=== PATIENT | female | born 1930 | race Caucasian/White ===

== ENCOUNTER 2017-05-20 19:49 | Emergency (ER) | payer OTHER ==
[2017-05-20 20:07] VITALS: BP 134/73; PULSE 73; TEMP 98.6; BMI 28.9
--- NOTE | 2017-05-20 20:47 | PDOC ---
History of Present Illness - General History Source: Patient - History of Present Illness Initial Comments: 05/20/17 21:13 The patient is a 87 year old female, with a significant past medical history of hypothyroidism and hypertension, who presents to the emergency department accompanied by daughter with bilateral foot swelling for approximately 6 days. As per daughter, she first noted mild swelling in the feet bilaterally, with associated erythema last . Daughter reports patients PCP evaluated the patient and prescribed her Amoxicillin and an antibiotic ointment 3 days ago. Daughter reports worsening edema in her feet since the start of her treatment as well as ulcerations to the toes bilaterally. Patient reports associated pain to the feet bilaterally, but denies any fever, chills, cough, headache, or dizziness. Daughter states patient had similar symptoms approximately 1 year ago , which resolved with antibiotics. Daughter reports patient usually spends the winter in [place] with family due to the cold. Patient typically ambulates with a walker at baseline, and has no history of recent trauma to the legs, diabetes, cardiac disease, or chronic leg swelling. Patient denies any chest pain, shortness of breath, diaphoresis, or palpitations. She denies any abdominal pain , nausea, vomiting, diarrhea, constipation, or changes in urination. She denies any recent travel or sick contacts. Allergies: NKDA Past Surgical History: Back surgery Social History: Non smoker. No ETOH or recreational drug use. <Kelly Eduardo - Last Filed: 05/20/17 21:13> <Anais Geronimo - Last Filed: 05/21/17 00:00> - General Chief Complaint: Wound Stated Complaint: BOTH FEET RED, ULCERS Time Seen by Provider: 05/20/17 19:52 Past History <Kelly Eduardo - Last Filed: 05/20/17 21:13> - Past Medical History COPD: No HTN: Yes Thyroid Disease: Yes - Suicide/Smoking/Psychosocial Hx Smoking History: Never smoked Have you smoked in the past 12 months: No Information on smoking cessation initiated: No Hx Alcohol Use: No Drug/Substance Use Hx: No Substance Use Type: None <Anais Geronimo - Last Filed: 05/21/17 00:00> - Past Medical History Allergies/Adverse Reactions: Allergies Allergy/AdvReac Type Severity Reaction Status Date / Time No Known Allergies Allergy Verified 05/20/17 19:52 Home Medications: Ambulatory Orders Amlodipine Besylate 5 mg PO HS 05/20/17 Amoxicillin - [Amoxicillin 500mg Capsule -] 500 mg PO TID 05/20/17 Hydrochlorothiazide [Hctz -] 25 mg PO HS 05/20/17 Levothyroxine [Synthroid -] 25 mcg PO DAILY 05/20/17 Lisinopril [Prinivil] 20 mg PO HS 05/20/17 Mupirocin Cream [Bactroban 2% Cream -] 1 applic TP BID 05/20/17 Review of Systems - Review of Systems Able to Perform ROS?: Yes Comments:: 05/20/17 21:13 CONSTITUTIONAL: Absent: fever, no chills, no fatigue EYES: Absent: visual changes ENT: Absent: ear pain, no sore throat CARDIOVASCULAR: Absent: chest pain, no palpitations RESPIRATORY: Absent: cough, no SOB GI: Absent: abdominal pain, no nausea, no vomiting, no constipation, no diarrhea GENITOURINARY: Absent: dysuria, no frequency, no hematuria MUSKULOSKELETAL: Absent: back pain, no arthralgia, no myalgia SKIN: Present: bilateral foot swelling/pain and ulcerations at the toes bilaterally Absent: rash NEURO: Absent: headache <Eduardo,Giomilsy - Last Filed: 05/20/17 21:13> *Physical Exam - Vital Signs Last Vital Signs Temp Pulse Resp BP Pulse Ox 98.6 F 73 20 134/73 100 05/20/17 19:49 05/20/17 19:49 05/20/17 19:49 05/20/17 19:49 05/20/17 19:49 - Physical Exam Comments: 05/20/17 21:14 GENERAL: The patient is awake, alert, and fully oriented, in no acute distress. HEAD: Normal with no signs of trauma. EYES: Pupils equal, round and reactive to light, extraocular movements intact, sclera anicteric, conjunctiva clear with no pallor. ENT: Ears normal, nares patent, oropharynx clear without exudates. Moist mucous membranes. NECK: Normal range of motion, supple without lymphadenopathy, JVD, or masses. LUNGS: Breath sounds equal, clear to auscultation bilaterally. No wheeze/ crackles. HEART: 2 out of 6 systolic murmur of the right and left intercostal space radiating to the carotids. Regular rate ABDOMEN: Soft/nontender/nondistended. BS wnl. No guarding or rebound. No palpable masses. No hepatosplenomegaly. EXTREMITIES: 2+ pitting edema to the ankle on the right, 1+ pitting edema to the ankle on the left, with erythema of toes and dorsum of the feet, skin was slightly warm to touch. Normal range of motion. No clubbing or cyanosis. No cords. NEUROLOGICAL: Cranial nerves II through XII grossly intact. Normal speech. PSYCH: Normal mood, normal affect. SKIN: 2+ pitting edema to the ankle on the right, 1+ pitting edema to the ankle on the left, with erythema of toes and dorsum of the feet, skin was slightly warm to touch. Shallow erosions at the base of the 2nd, 3rd, and 4th toes bilaterally. Scant amount of purulent drainage at the right 2nd toe lesion which was cultured. No Other rashes or lesions noted. <Kelly Eduardo - Last Filed: 05/20/17 21:13> - Vital Signs Last Vital Signs Temp Pulse Resp BP Pulse Ox 98.6 F 73 20 134/73 100 05/20/17 19:49 05/20/17 19:49 05/20/17 19:49 05/20/17 19:49 05/20/17 19:49 <Anais Geronimo - Last Filed: 05/21/17 00:00> ED Treatment Course - LABORATORY CBC & Chemistry Diagram: 05/20/17 21:48 05/20/17 21:48 <Anais Geronimo - Last Filed: 05/21/17 00:00> Medical Decision Making - Medical Decision Making Documentation has been prepared under my direction and personally reviewed by me in its entirety. I attest that this documented accurately reflects all work, treatment, procedures and medical decision making performed by me. As noted above, this 87-year-old woman (non-Beninese speaking; accompanied by her daughter who is her golf sales associate) presents with 5 day history of progressive bilateral foot cellulitis. She has been on amoxicillin, prescribed by her PMD ( third day) with progression of edema/erythema. One previous history of milder cellulitis of the feet; daughter states that the family believes that cold weather conditions resulted in the breakdown of skin and subsequent cellulitis. Exam as noted. Patient is afebrile and appears well. Laboratory evaluation reveals no elevation of white blood cell count (7200) with a normal lactic acid. Remainder of the laboratory evaluation is essentially normal. Daughter states that she will need to stay with her mother if she is admitted for IV antibiotics since she does not understand Beninese and is liable to be disoriented in the hospital. Case discussed with Dr.Roya Valenzuela, Infectious Disease staff. Since there is no evidence of systemic sepsis and patient would likely be disoriented as an inpatient, Dalvance 1000 mg IV approved for treatment now. 05/20/17 23:57 Patient tolerated administration of Delavance without adverse effects. She will be discharged with follow-up with her doctor in one week. If signs of worsening cellulitis occur prior to that, she should return to the emergency room. Amoxicillin by mouth should be discontinued but Bactroban ointment can be applied to the skin erosions as previously instructed. <Anais Geronimo - Last Filed: 05/21/17 00:00> *DC/Admit/Observation/Transfer - Attestations Scribe Attestion: 05/20/17 21:15 Documentation prepared by Kelly Eduardo, acting as certified medical aide for Anais Geronimo MD. <Kelly Eduardo - Last Filed: 05/20/17 21:13> <Anais Geronimo - Last Filed: 05/21/17 00:00> Diagnosis at time of Disposition: Cellulitis of both feet - Discharge Dispostion Disposition: HOME Condition at time of disposition: Good - Patient Instructions Printed Discharge Instructions: Cellulitis, Dalbavancin Injection Additional Instructions: Elevate feet as much as possible Continue Bactroban ointment as prescribed ; stop amoxicillin followup with general physician within 1 week Return to ER if redness/swelling worsens or fever develops
[2017-05-20 22:07] LABS: URINE APPEARANCE Clear; URINE BILIRUBIN Negative (NEGATIVE); URINE BLOOD Negative (NEGATIVE); URINE GLUCOSE (UA) Negative (NEGATIVE); URINE KETONE Negative (NEGATIVE); URINE NITRITE Negative (NEGATIVE); URINE PROTEIN Negative (NEGATIVE); URINE UROBILINOGEN 0.2 (0.2-1.0)
[2017-05-20 22:12] LABS: URINE COLOR YELLOW; URINE LEUK ESTERASE 1+ (NEGATIVE)
[2017-05-20 22:12] LABS: BASOPHIL 1.3 % (0-2.0); EOSINOPHIL 14.7 % (0-4.5); MCHC 34.5 g/dl (32.0-36.0); MEAN CELL VOLUME 86.8 fl (80-96); MEAN PLT VOLUME 9.4 fl (7.5-11.1); NEUTROPHILS 59.2 % (42.8-82.8); PLATELET COUNT 316 K/MM3 (134-434); RDW 12.4 % (11.6-15.6); WHITE BLOOD COUNT 7.2 K/mm3 (4.0-10.8)
[2017-05-20 22:15] LABS: INR 1.04 (0.82-1.09); PROTHROMBIN TIME (PATIENT) 11.6 SEC (10.2-13.0)
[2017-05-20 22:19] LABS: ALBUMIN 3.9 g/dl (3.5-5.0); ALK PHOS 101 U/L (32-92); ANION GAP 9 (8-16); BILIRUBIN,TOTAL 0.6 mg/dl (0.2-1.0); CALCIUM 9.5 mg/dl (8.4-10.2); CO2 25 mmol/L (22-28); CREATININE 1.2 mg/dl (0.6-1.3); GLUCOSE,RANDOM 120 mg/dl (74-106); SGOT/AST 35 U/L (10-42); SGPT/ALT 12 U/L (10-40); TOT PROT 8.2 g/dl (6.4-8.3)
[2017-05-20 22:42] LABS: URINE BACTERIA FEW /hpf (NEGATIVE); URINE RBC 0-2 /hpf (0-3)
[2017-05-20] MEDS ORDERED: DALBAVANCIN HCL 1,500 MG in DEXTROSE 5%-WATER - 500 ML IVPB ONE (23:00)
[2017-05-20] MEDS ORDERED: DALBAVANCIN HCL 500 MG VIAL (RESTRICTED TO ID ONLY) IVPB ONE (23:06)
== END 2017-05-20 23:56 | disposition home or self-care (01) ==
LOC: FER 19:49
DX: L03.116 Cellulitis of left lower limb (principal); L03.115 Cellulitis of right lower limb; E03.9 Hypothyroidism, unspecified; I10 Essential (primary) hypertension
CPT/HCPCS: 36415; 80053; 81003; 81015; 83605; 85025; 85610; 87040; 87070; 87086; 87205; 99282-25; J0875

== ENCOUNTER 2017-06-04 05:22 | Observation (INO) | payer OTHER ==
[2017-06-04 05:33] VITALS: BMI 36.1
--- NOTE | 2017-06-04 05:46 | PDOC ---
History of Present Illness - General Chief Complaint: Chest Pain Stated Complaint: chestpain Time Seen by Provider: 06/04/17 05:46 History Source: Patient Exam Limitations: Language Barrier - History of Present Illness Initial Comments: 06/04/17 05:51 This is an 87-year-old female who comes in with her daughter for evaluation of chest pain. Patient had several hours of chest pain last night and her daughter gave HER-2 aspirin and the chest pain resolved patient went to sleep and slept all night. Patient got up approximately 4 AM to go to the bathroom and the chest pain was turned. Patient has had constant chest pain since about 4 AM. Patient denies any associated nausea, diaphoresis or shortness of breath. Patient said the pain does radiate to the back and left shoulder but denies any radiation down the left arm. Patient has a history of hypertension but denies history of coronary artery disease or family history of coronary artery disease. PAST MEDICAL HISTORY: no significant history PAST SURGICAL HISTORY: no significant history FAMILY HISTORY: no pertinant history SOCIAL HISTORY: Pt lives with family and is employed. MEDICATIONS: reviewed ALLERGIES: As per nursing notes Review of Systems General: No fevers or chills, no weakness, no weight loss HEENT: No change in vision. No sore throat,. No ear pain CardioVascular: + chest pain, no shortness of breath Respiratory:No cough, or wheezing. Gastrointestinal: no nausea, vomitting, diarrhea or constipation, No rectal bleeding Genitourinary: No dysuria, hematuria, or frequency Musculoskeletal: No joint or muscle pain or swelling Neurologic: No headache, vertigo, dizziness or loss of consciousness Psychiatric: nor depression Skin: No rashes or easy bruising Endocrine: no increased thirst or abnormal weight change Allergic: no skin or latex allergy All other systems reviewed and normal Exam: General: Well-nourished well-developed individual, no acute distress HEENT: Throat: Normal, tonsils normal, no erythema or exudate Neck: Supple, no meningeal signs, no lymphadenopathy Eyes::Pupils equal reactive and round, extraocular motion intact Chest: Nontender to palpation Cardiac: S1-S2 normal, regular rate and rhythm, no murmurs rubs or gallops Respiratory: Lungs clear to auscultation bilateral Abdomen: Soft, nondistended, normal bowel sounds, nontender to palpation diffusely Extremities: Warm, dry, no cyanosis, clubbing, or edema Skin: No rashes Neuro: Alert and oriented x3, CN II - XII intact, nonfocal exam with normal strength, normal sensation, normal reflexes, normal gait, Psych: Normal mood and affect EKG shows no nystagmus rhythm and a rate of 63, old septal infarct, no acute ST- T wave changes Medical decision making: This is a 87-year-old female with cardiac risk factors and 2 hours of substernal chest pain radiating to her back and left shoulder. Medical workup initiated including cardiogram, chest x-ray, labs including cardiac profile, CBC and comp. Patient will need an admission for further evaluation and to rule out ACS. 06/04/17 07:00 Care of this patient transferred to Dr. Martinez Case discussed in detail with oncoming Emergency Physician including history, physical exam and ancillary studies. Oncoming Emergency Physician has assumed care for the patient and will complete the evaluation and treatment. Patient is aware of the plan. Pt is clinically unchanged and stable. Past History - Past Medical History Allergies/Adverse Reactions: Allergies Allergy/AdvReac Type Severity Reaction Status Date / Time No Known Allergies Allergy Verified 06/04/17 05:33 Home Medications: Ambulatory Orders Amlodipine Besylate 5 mg PO HS 05/20/17 Hydrochlorothiazide [Hctz -] 25 mg PO HS 05/20/17 Levothyroxine [Synthroid -] 25 mcg PO DAILY 05/20/17 Lisinopril [Prinivil] 20 mg PO HS 05/20/17 COPD: No HTN: Yes Thyroid Disease: Yes - Suicide/Smoking/Psychosocial Hx Smoking History: Never smoked Have you smoked in the past 12 months: No Hx Alcohol Use: No Drug/Substance Use Hx: No Substance Use Type: None *Physical Exam - Vital Signs Last Vital Signs Temp Pulse Resp BP Pulse Ox 98.7 F 62 22 155/86 100 06/04/17 05:28 06/04/17 05:28 06/04/17 05:28 06/04/17 05:28 06/04/17 05:28 Heart Score/ECG Review - History History: Moderately suspicious - Electrocardiogram EKG: Non specific repolarization disturbance - Age Age: >/= 65 - Risk Factors Risk Factors Heart Score: Yes Hx Hypertension Based on the list above the patient has:: 1-2 risk factors - Troponin Troponin: </= normal limit - Score Heart Score - Total: 5 ED Treatment Course - LABORATORY CBC & Chemistry Diagram: 06/04/17 07:00 06/04/17 19:26 *DC/Admit/Observation/Transfer Diagnosis at time of Disposition: Chest pain Qualifiers: Chest pain type: unspecified Qualified Code(s): R07.9 - Chest pain, unspecified - Referrals - Patient Instructions - Post Discharge Activity
[2017-06-04 06:30] LABS: BASO % 1.1 % (0-2.0); EOS % 5.8 % (0-4.5); MCH 29.6 pg (25.7-33.7); MCHC 34.2 g/dl (32.0-36.0); MEAN CELL VOLUME 86.7 fl (80-96); MEAN PLT VOLUME 8.9 fl (7.5-11.1); PLATELET COUNT 327 K/MM3 (134-434); RDW 13.2 % (11.6-15.6); WHITE BLOOD COUNT 5.8 K/mm3 (4.0-10.0)
[2017-06-04 07:20] LABS: MCH 29.5 pg (25.7-33.7); MCHC 34.1 g/dl (32.0-36.0); MEAN CELL VOLUME 86.5 fl (80-96); MEAN PLT VOLUME 8.7 fl (7.5-11.1); PLATELET COUNT 324 K/MM3 (134-434); RDW 12.4 % (11.6-15.6); WHITE BLOOD COUNT 6.4 K/mm3 (4.0-10.8)
[2017-06-04 07:37] LABS: ALBUMIN 3.8 g/dl (3.5-5.0); ALK PHOS 88 U/L (32-92); ANION GAP 8 (8-16); BILIRUBIN,TOTAL 0.6 mg/dl (0.2-1.0); CALCIUM 9.7 mg/dl (8.4-10.2); CO2 26 mmol/L (22-28); CREATININE 1.1 mg/dl (0.6-1.3); GLUCOSE,RANDOM 104 mg/dl (74-106); SGOT/AST 29 U/L (10-42); SGPT/ALT 14 U/L (10-40); TOT PROT 8.1 g/dl (6.4-8.3)
[2017-06-04 07:38] LABS: CPK 105 IU/L (26-192)
[2017-06-04 07:46] LABS: TROPONIN I (DFP) < 0.03 ng/ml (0.03-0.50)
--- NOTE | 2017-06-04 08:19 | PDOC ---
*Physical Exam - Vital Signs Last Vital Signs Temp Pulse Resp BP Pulse Ox 98.7 F 60 20 143/63 99 06/04/17 05:28 06/04/17 06:32 06/04/17 06:32 06/04/17 06:32 06/04/17 06:32 - Physical Exam Comments: 06/04/17 08:17 Assumed care of the patient from Dr. Lucia 7 AM.. Laboratories pending. CBC normal. Cardiac enzymes negative. Sodium and chloride are low. Admit for observation, further cardiac evaluation, serial EKGs and enzymes. 06/04/17 08:18 Clinically and hemodynamically stable. No further chest pain. ED Treatment Course - LABORATORY CBC & Chemistry Diagram: 06/04/17 07:00 06/04/17 07:00 - ADDITIONAL ORDERS Additional order review: Laboratory Results 06/04/17 06/04/17 06/04/17 07:00 07:00 06:00 Sodium 128 L Potassium 4.0 Chloride 94 L Carbon Dioxide 26 Anion Gap 8 BUN 22 H D Creatinine 1.1 Creat Clearance w eGFR 47.09 Random Glucose 104 Calcium 9.7 Total Bilirubin 0.6 AST 29 ALT 14 Alkaline Phosphatase 88 Creatine Kinase 105 Cancelled Troponin I < 0.03 L Cancelled Total Protein 8.1 Albumin 3.8 06/04/17 06/04/17 06:00 06:00 Sodium Cancelled Potassium Cancelled Chloride Cancelled Carbon Dioxide Cancelled Anion Gap Cancelled BUN Cancelled Creatinine Cancelled Creat Clearance w eGFR Cancelled Random Glucose Cancelled Calcium Cancelled Total Bilirubin Cancelled AST Cancelled ALT Cancelled Alkaline Phosphatase Cancelled Creatine Kinase Cancelled Troponin I Cancelled Total Protein Cancelled Albumin Cancelled 06/04/17 06/04/17 07:00 06:00 RBC 4.09 4.10 MCV 86.5 86.7 MCHC 34.1 34.2 RDW 12.4 13.2 MPV 8.7 8.9 Neutrophils % 64.0 Lymphocytes % 17.9 Monocytes % 11.2 H Eosinophils % 5.8 H Basophils % 1.1 *DC/Admit/Observation/Transfer Diagnosis at time of Disposition: Chest pain Qualifiers: Chest pain type: unspecified Qualified Code(s): R07.9 - Chest pain, unspecified - Discharge Dispostion Admit: Yes - Referrals - Patient Instructions - Post Discharge Activity
[2017-06-04] MEDS ORDERED: NITROGLYCERIN 2% OINTMENT - 1GM PACKET TD ONE ×2 (08:24→08:28)
[2017-06-04] MEDS ORDERED: ASPIRIN 81 MG CHEWABLE TABLETS PO ONE (08:24)
[2017-06-04] MEDS ORDERED: ASPIRIN 81 MG CHEWABLE TABLETS ONE (08:28)
[2017-06-04] MEDS ORDERED: SODIUM CHLORIDE 1,000 ML IV SCH ×2 (08:30→10:48)
[2017-06-04] MEDS ORDERED: ACETAMINOPHEN 325 MG TABLET (FP) PO ONE (08:46)
[2017-06-04] MEDS ORDERED: ACETAMINOPHEN 325 MG TABLET (FP) ONE (08:49)
--- NOTE | 2017-06-04 09:15 | HP ---
CHIEF COMPLAINT: chest pain PCP: Dr Murphy help desk intern: Dr Lee HISTORY OF PRESENT ILLNESS: Patient is a 87 y/o female with a past medical history of hypertension and hypertension. Daughter served as aluminum container tester. Patient reports at 1500 yesterday (06/03) she developed substenal chest discomfort radiating to her right shoulder. Patient reports taking ASA and the pain resolved. She went to bed that evening and awoke at 0400 on this date with sharp pain to the center of the chest that was radiating to the right shoulder. Patient's daughter also reports dyspnea upon exertion within the past month. Patient denies any syncopal episode. ER course was notable for: (1)troponin x 1 wnl (2)ekg nsr previous septal infarct noted (3)chest xray, no acute pathology Recent Travel: none PAST MEDICAL HISTORY: see hpi PAST SURGICAL HISTORY: none Social History: retired, resides at home with daughter (primary pet care associate) Smoking:none Alcohol:none Drugs: none Family History: non contributory to this admission Allergies No Known Allergies Allergy (Verified 06/04/17 05:33) HOME MEDICATIONS: Home Medications Medication Instructions Recorded Amlodipine Besylate 5 mg PO HS 05/20/17 Hydrochlorothiazide [Hctz -] 25 mg PO HS 05/20/17 Levothyroxine [Synthroid -] 25 mcg PO DAILY 05/20/17 Lisinopril [Prinivil] 20 mg PO HS 05/20/17 REVIEW OF SYSTEMS CONSTITUTIONAL: Absent: fever, chills, diaphoresis, generalized weakness, malaise, loss of appetite, weight change HEENT: Absent: rhinorrhea, nasal congestion, throat pain, throat swelling, difficulty swallowing, mouth swelling, ear pain, eye pain, visual changes CARDIOVASCULAR: present: chest pain, Absent: syncope, palpitations, irregular heart rate, lightheadedness, peripheral edema RESPIRATORY: present: dyspnea with exertion, Absent: cough, shortness of breath, orthopnea, wheezing, stridor, hemoptysis GASTROINTESTINAL: Absent: abdominal pain, abdominal distension, nausea, vomiting, diarrhea, constipation, melena, hematochezia GENITOURINARY: Absent: dysuria, frequency, urgency, hesitancy, hematuria, flank pain, genital pain MUSCULOSKELETAL: Absent: myalgia, arthralgia, joint swelling, back pain, neck pain SKIN: Absent: rash, itching, pallor HEMATOLOGIC/IMMUNOLOGIC: Absent: easy bleeding, easy bruising, lymphadenopathy, frequent infections ENDOCRINE: Absent: unexplained weight gain, unexplained weight loss, heat intolerance, cold intolerance NEUROLOGIC: Absent: headache, focal weakness or paresthesias, dizziness, unsteady gait, seizure, mental status changes, bladder or bowel incontinence PSYCHIATRIC: Absent: anxiety, depression, suicidal or homicidal ideation, hallucinations. PHYSICAL EXAMINATION Vital Signs - 24 hr 06/04/17 06/04/17 06/04/17 05:28 06:24 06:32 Temperature 98.7 F Pulse Rate 62 60 Pulse Rate [ 60 Apical] Respiratory 22 20 Rate Blood Pressure 155/86 Blood Pressure 143/63 [Right Arm] O2 Sat by Pulse 100 99 99 Oximetry (%) 06/04/17 06/04/17 08:34 08:58 Temperature Pulse Rate Pulse Rate [ 62 61 Apical] Respiratory 18 Rate Blood Pressure Blood Pressure 121/67 126/66 [Right Arm] O2 Sat by Pulse Oximetry (%) GENERAL: Awake, alert, and fully oriented, in no acute distress. HEAD: Normal with no signs of trauma. EYES: Pupils equal, round and reactive to light, extraocular movements intact, sclera anicteric, conjunctiva clear. No lid lag. EARS, NOSE, THROAT: Ears normal, nares patent, oropharynx clear without exudates. dry mucous membranes. NECK: Normal range of motion, supple without lymphadenopathy, JVD, or masses. LUNGS: Breath sounds equal, clear to auscultation bilaterally. No wheezes, and no crackles. No accessory muscle use. HEART: Regular rate and rhythm, normal S1 and S2 without murmur, rub or gallop. point tenderness noted to the right anterior chest wall. ABDOMEN: Soft, nontender, not distended, normoactive bowel sounds, no guarding, no rebound, no masses. No hepatomegaly or splenomegaly. MUSCULOSKELETAL: Normal range of motion at all joints. No bony deformities or tenderness. No CVA tenderness. UPPER EXTREMITIES: 2+ pulses, warm, well-perfused. No cyanosis. No clubbing. No peripheral edema. LOWER EXTREMITIES: 2+ pulses, warm, well-perfused. No calf tenderness. No peripheral edema. NEUROLOGICAL: Cranial nerves II-XII intact. Normal speech. Normal gait. PSYCHIATRIC: Cooperative. Good eye contact. Appropriate mood and affect. SKIN: Warm, dry, normal turgor, no rashes or lesions noted, normal capillary refill. Laboratory Results - last 24 hr 06/04/17 06/04/17 06/04/17 06:00 06:00 06:00 WBC 5.8 RBC 4.10 Hgb 12.1 Hct 35.5 MCV 86.7 MCH 29.6 MCHC 34.2 RDW 13.2 Plt Count 327 MPV 8.9 Neutrophils % 64.0 Lymphocytes % 17.9 Monocytes % 11.2 H Eosinophils % 5.8 H Basophils % 1.1 Sodium Cancelled Potassium Cancelled Chloride Cancelled Carbon Dioxide Cancelled Anion Gap Cancelled BUN Cancelled Creatinine Cancelled Creat Clearance w eGFR Cancelled Random Glucose Cancelled Calcium Cancelled Total Bilirubin Cancelled AST Cancelled ALT Cancelled Alkaline Phosphatase Cancelled Creatine Kinase Cancelled Troponin I Cancelled Total Protein Cancelled Albumin Cancelled 06/04/17 06/04/17 06/04/17 06:00 07:00 07:00 WBC 6.4 RBC 4.09 Hgb 12.1 Hct 35.4 MCV 86.5 MCH 29.5 MCHC 34.1 RDW 12.4 Plt Count 324 MPV 8.7 Neutrophils % Lymphocytes % Monocytes % Eosinophils % Basophils % Sodium 128 L Potassium 4.0 Chloride 94 L Carbon Dioxide 26 Anion Gap 8 BUN 22 H D Creatinine 1.1 Creat Clearance w eGFR 47.09 Random Glucose 104 Calcium 9.7 Total Bilirubin 0.6 AST 29 ALT 14 Alkaline Phosphatase 88 Creatine Kinase Cancelled Troponin I Cancelled Total Protein 8.1 Albumin 3.8 06/04/17 07:00 WBC RBC Hgb Hct MCV MCH MCHC RDW Plt Count MPV Neutrophils % Lymphocytes % Monocytes % Eosinophils % Basophils % Sodium Potassium Chloride Carbon Dioxide Anion Gap BUN Creatinine Creat Clearance w eGFR Random Glucose Calcium Total Bilirubin AST ALT Alkaline Phosphatase Creatine Kinase 105 Troponin I < 0.03 L Total Protein Albumin ASSESSMENT/PLAN: f/e/n hyponatremia -serum sodium 128, hold HCTZ, likely secondary to hypovolemia, gentle IV hydration, repeat bmp at 1300 regular diet PPX - pepcid - oob - scd dispo: requires telemetry observation Problem List - Problem (1) Hypertension Assessment/Plan: - b/p at goal, continue [facility] Code(s): I10 - ESSENTIAL (PRIMARY) HYPERTENSION (2) Hypothyroidism (acquired) Assessment/Plan: - continue levothyroxine home dose, pending tsh and t4 Code(s): E03.9 - HYPOTHYROIDISM, UNSPECIFIED (3) Chest pain Assessment/Plan: - reproducible chest pain on exam, unlikely acs, troponin x 1 wnl, pending 2nd and 3rd, lipid profile ekg nsr old septal infarct noted unchanged from prior ekg (02/01/16) - pt does report dyspnea upon exertion, chart copies obtained from Dr Lee's office, last echo (02/01/16) normal systolic function, mild diastolic dysfunction , myocardial perfusion scan, no ischemia or infarction, lvef 69%, pending echo today, heart score 4, appreciate the input of help desk intern ([facility]) - ASA given in ED,continue daily ASA - continuos cardiac monitoring. Code(s): R07.9 - CHEST PAIN, UNSPECIFIED Qualifiers: Chest pain type: unspecified Qualified Code(s): R07.9 - Chest pain, unspecified Visit type - Emergency Visit Emergency Visit: Yes Care time: The patient presented to the Emergency Department on the above date and was hospitalized for further evaluation of their emergent condition. - New Patient This patient is new to me today: Yes Date on this admission: 06/04/17 - Critical Care Critical Care patient: No
[2017-06-04 10:26] LABS: URINE APPEARANCE Clear; URINE BILIRUBIN Negative (NEGATIVE); URINE BLOOD Trace-intact (NEGATIVE); URINE COLOR YELLOW; URINE GLUCOSE (UA) Negative (NEGATIVE); URINE KETONE Negative (NEGATIVE); URINE LEUK ESTERASE TRACE (NEGATIVE); URINE NITRITE Negative (NEGATIVE); URINE PROTEIN Negative (NEGATIVE); URINE UROBILINOGEN 0.2 (0.2-1.0)
[2017-06-04 10:30] LABS: URINE BACTERIA FEW /hpf (NEGATIVE)
--- NOTE | 2017-06-04 12:50 | CON.CARD ---
Consult Consult Specialty:: Cardiology Referred by:: Hospitalist Medicine Reason for Consultation:: Chest pain - History of Present Illness Chief Complaint: Chest pain History of Present Illness: Patient is a 87 y/o female with a past medical history of hypertension and hypertension. Daughter served as licensed pharmacist. Patient reports at 1500 yesterday (06/03) she developed right-sided substenal chest discomfort radiating to her right shoulder. Patient reports taking ASA and the pain resolved. She went to bed that evening and awoke at 0400 on this date with sharp pain to the right center of the chest with reproducible point tenderness, increased with raising arms over head. Patient's daughter also reports stable dyspnea upon exertion of stable pattern. Patient denies any near or true syncopal episode, palpitations, orthopnea, PND . - History Source History Provided By: Patient Limitations to Obtaining History: No Limitations - Alcohol/Substance Use Hx Alcohol Use: No - Smoking History Smoking history: Never smoked Have you smoked in the past 12 months: No Home Medications - Allergies Allergies/Adverse Reactions: Allergies Allergy/AdvReac Type Severity Reaction Status Date / Time No Known Allergies Allergy Verified 06/04/17 05:33 - Home Medications Home Medications: Ambulatory Orders Hydrochlorothiazide [Hctz -] 25 mg PO HS 05/20/17 Levothyroxine [Synthroid -] 25 mcg PO DAILY 05/20/17 Lisinopril [Prinivil] 20 mg PO HS 05/20/17 RX: Amlodipine Besylate 5 mg PO HS 05/20/17 Review of Systems - Review of Systems Cardiovascular: reports: Chest Pain Vital Signs: Vital Signs Temperature 98.7 F 06/04/17 05:28 Pulse Rate 60 06/04/17 09:39 Respiratory Rate 18 06/04/17 09:39 Blood Pressure 122/66 06/04/17 09:39 O2 Sat by Pulse Oximetry (%) 99 06/04/17 09:39 Constitutional: Yes: No Distress, Calm, Thin Neck: Yes: Supple Respiratory: Yes: Regular, CTA Bilaterally, Other (Reproducible chest wall tenderness right upper sternal border) Gastrointestinal: Yes: Normal Bowel Sounds, Soft Cardiovascular: Yes: Regular Rate and Rhythm JVD: No Carotid Bruit: No Heart Sounds: Yes: S1, S2 Murmur: Yes: Systolic Murmur, Grade 1 Edema: No - Other Data Labs, Other Data: CBC, BMP 06/04/17 07:00 06/04/17 07:00 Troponin, BNP 06/04/17 06/04/17 06/04/17 06:00 06:00 07:00 Troponin I Cancelled Cancelled < 0.03 L Troponin, BNP 06/04/17 06/04/17 06/04/17 06:00 06:00 07:00 Troponin I Cancelled Cancelled < 0.03 L NSR @ 63 septal infarct similar to previous Echo: Report Reviewed Ejection Fraction %: LVEF > or = 40 % Imaging - Results Chest X-ray: Report Reviewed (NAD) Problem List - Problems (1) Costochondral chest pain Code(s): R07.1 - CHEST PAIN ON BREATHING (2) Hypertension Code(s): I10 - ESSENTIAL (PRIMARY) HYPERTENSION Qualifiers: Hypertension type: essential hypertension Qualified Code(s): I10 - Essential (primary) hypertension (3) Hypothyroidism (acquired) Code(s): E03.9 - HYPOTHYROIDISM, UNSPECIFIED (4) Mild aortic stenosis by prior echocardiogram Code(s): I35.0 - NONRHEUMATIC AORTIC (VALVE) STENOSIS (5) Hyponatremia Code(s): E87.1 - HYPO-OSMOLALITY AND HYPONATREMIA (6) Diastolic dysfunction Code(s): I51.9 - HEART DISEASE, UNSPECIFIED Assessment/Plan 02/06/2016 Regadenason MIBI: No ischemia, LVEF 69% 02/01/2016 Echo: Normal LV size and fxn, mild diastolic dysfunction, mild aortic stenosis, normal right-sided pressures 1. Atypical chest pain c/w costochondritis 2. HTN/HCVD 3. Hypothyroidism 4. Mild aortic valve stenosis 5. Hyponatremia referable to HCTZ 6. Diastolic dysfunction P:1. Ruled out for DC 2. Trial of naprosyn as needed, continue Lotrel 5/20 qd, agree with d/c HCTZ and monitor Na 3. May be d/melvina with f/u with Dr. Lee for further evaluation of chronic MINA 4. Thank you for consultative opportunity
[2017-06-04 13:33] LABS: CPK 80 IU/L (26-192)
[2017-06-04 13:42] LABS: TROPONIN I (DFP) < 0.03 ng/ml (0.03-0.50)
[2017-06-04 15:46] LABS: FREE T4 1.3 ng/dl (0.76-1.46); THYROID STIMULATING HORMONE 4.45 uIU/ml (0.358-3.74)
[2017-06-04] MEDS ORDERED: PNEUMOC 13-VAL CONJ-DIP CRM/PF 0.5 ML DISP.SYRIN IM ONE (16:08)
[2017-06-04] MEDS ORDERED: NAPROXEN 250 MG TABLET (FP) PO PRN (18:33)
[2017-06-04 20:13] LABS: CPK 75 IU/L (26-192)
[2017-06-04 20:18] LABS: ANION GAP 6 (8-16); CALCIUM 8.7 mg/dl (8.4-10.2); CO2 24 mmol/L (22-28); GLUCOSE,RANDOM 139 mg/dl (74-106)
[2017-06-04 20:30] LABS: TROPONIN I (DFP) < 0.03 ng/ml (0.03-0.50)
[2017-06-04] MEDS: FAMOTIDINE 20 MG TABLET PO SCH (21:08)
[2017-06-04] MEDS ORDERED: LISINOPRIL 20 MG TABLET (FP) PO SCH ×2 (22:00)
[2017-06-04] MEDS ORDERED: FAMOTIDINE 20 MG TABLET PO SCH (22:00)
[2017-06-04] MEDS ORDERED: amLODIPine BESYLATE 5 MG TABLET (FP) PO SCH ×2 (22:00)
[2017-06-05] MEDS ORDERED: LEVOTHYROXINE NA 25 MCG TABLET (FP) PO SCH ×2 (07:00)
--- NOTE | 2017-06-05 08:26 | EKG ---
Test Reason : Blood Pressure : / mmHG Vent. Rate : 063 BPM Atrial Rate : 063 BPM P-R Int : 172 ms QRS Dur : 068 ms QT Int : 396 ms P-R-T Axes : 019 -11 068 degrees QTc Int : 405 ms POOR DATA QUALITY, INTERPRETATION MAY BE ADVERSELY AFFECTED NORMAL SINUS RHYTHM WITH SINUS ARRHYTHMIA CANNOT RULE OUT SEPTAL INFARCT , AGE UNDETERMINED NO PREVIOUS ECGS AVAILABLE Confirmed by EPIFANIO GONZALEZ MD ([id number] on 06/05/2017 8:26:09 AM Referred By: MD SLOAN Confirmed By:EPIFANIO GONZALEZ MD
[2017-06-05 08:49] VITALS: BP 137/59; PULSE 69; TEMP 98
[2017-06-05 09:02] LABS: EOS % 6.2 % (0-4.5); MCH 29.5 pg (25.7-33.7); MCHC 33.9 g/dl (32.0-36.0); MEAN CELL VOLUME 87.1 fl (80-96); MEAN PLT VOLUME 9.9 fl (7.5-11.1); NEUT % 61.6 % (42.8-82.8); PLATELET COUNT 317 K/MM3 (134-434); RDW 12.8 % (11.6-15.6); WHITE BLOOD COUNT 5.9 K/mm3 (4.0-10.8)
[2017-06-05 09:07] LABS: ANION GAP 9 (8-16); CALCIUM 8.9 mg/dl (8.4-10.2); CO2 23 mmol/L (22-28); CREATININE 0.9 mg/dl (0.6-1.3); GLUCOSE,RANDOM 89 mg/dl (74-106); MAGNESIUM 1.7 mg/dL (1.8-2.4); PHOSPHOROUS 2.8 mg/dl (2.5-4.6)
[2017-06-05 09:33] LABS: CHOLESTEROL 185 mg/dl
[2017-06-05] MEDS ORDERED: MAGNESIUM SULFATE 2 GM in SODIUM CHLORIDE 100 ML IVPB ONE (09:47)
[2017-06-05] MEDS: FAMOTIDINE 20 MG TABLET PO SCH (09:52)
[2017-06-05] MEDS ORDERED: PNEUMOC 13-VAL CONJ-DIP CRM/PF 0.5 ML DISP.SYRIN IM ONE (10:00)
[2017-06-05] MEDS ORDERED: ASPIRIN 81 MG CHEWABLE TABLETS PO SCH ×2 (10:00)
--- NOTE | 2017-06-05 10:12 | DS ---
Physical Exam: SUBJECTIVE: Patient seen and examined, ambulatory at bedside, reports feeling well, denies any chest pain or shortness of breath. OBJECTIVE:Patient is a 87 y/o female with a past medical history of hypertension and hypertension. Daughter served as inventory control specialist. Patient reports at 1500 yesterday (06/03) she developed substenal chest discomfort radiating to her right shoulder. Patient reports taking ASA and the pain resolved. She went to bed that evening and awoke at 0400 on this date with sharp pain to the center of the chest that was radiating to the right shoulder. Patient's daughter also reports dyspnea upon exertion within the past month. Patient denies any syncopal episode. ER course was notable for: (1)troponin x 1 wnl (2)ekg nsr previous septal infarct noted (3)chest xray, no acute pathology Vital Signs Period Temp Pulse Resp BP Sys/Joyce Pulse Ox Last 24 Hr 98 F-98.5 F 58-69 17-18 108-142/57-70 97-100 PHYSICAL EXAM GENERAL: The patient is awake, alert, and fully oriented, in no acute distress. HEAD: Normal with no signs of trauma. EYES: PERRL, extraocular movements intact, sclera anicteric, conjunctiva clear. ENT: Ears normal, nares patent, oropharynx clear without exudates, moist mucous membranes. NECK: Trachea midline, full range of motion, supple. LUNGS: Breath sounds equal, clear to auscultation bilaterally, no wheezes, no crackles, no accessory muscle use. HEART: Regular rate and rhythm, S1, S2 without murmur, rub or gallop. ABDOMEN: Soft, nontender, nondistended, normoactive bowel sounds, no guarding, no rebound, no hepatosplenomegaly, no masses. EXTREMITIES: 2+ pulses, warm, well-perfused, no edema. NEUROLOGICAL: Cranial nerves II through XII grossly intact. Normal speech, gait not observed. PSYCH: Normal mood, normal affect. SKIN: Warm, dry, normal turgor, no rashes or lesions noted. LABS Laboratory Results - last 24 hr 06/04/17 06/04/17 06/04/17 10:17 13:00 13:01 WBC RBC Hgb Hct MCV MCH MCHC RDW Plt Count MPV Neutrophils % Lymphocytes % Monocytes % Eosinophils % Basophils % Sodium Potassium Chloride Carbon Dioxide Anion Gap BUN Creatinine Random Glucose Calcium Phosphorus Magnesium Creatine Kinase 80 Troponin I < 0.03 L B-Natriuretic Peptide Triglycerides Cholesterol Total LDL Cholesterol HDL Cholesterol TSH 4.45 H Free T4 1.30 Urine Color Yellow Urine Appearance Clear Urine pH 6.0 Ur Specific [place] 1.020 Urine Protein Negative Urine Glucose (UA) Negative Urine Ketones Negative Urine Blood Trace-intact H Urine Nitrite Negative Urine Bilirubin Negative Urine Urobilinogen 0.2 Ur Leukocyte Esterase Trace H Urine RBC 3-5 Urine WBC 3-5 Ur Epithelial Cells Few Urine Bacteria Few 06/04/17 06/04/17 06/05/17 13:01 19:26 07:30 WBC RBC Hgb Hct MCV MCH MCHC RDW Plt Count MPV Neutrophils % Lymphocytes % Monocytes % Eosinophils % Basophils % Sodium 128 L Potassium 3.8 Chloride 98 Carbon Dioxide 24 Anion Gap 6 L BUN 21 H Creatinine 1.0 Random Glucose 139 H D Calcium 8.7 Phosphorus Magnesium Creatine Kinase 75 Troponin I < 0.03 L B-Natriuretic Peptide 177.00 Triglycerides 79 Cholesterol 185 Total LDL Cholesterol 99 HDL Cholesterol 70 TSH Free T4 Urine Color Urine Appearance Urine pH Ur Specific [place] Urine Protein Urine Glucose (UA) Urine Ketones Urine Blood Urine Nitrite Urine Bilirubin Urine Urobilinogen Ur Leukocyte Esterase Urine RBC Urine WBC Ur Epithelial Cells Urine Bacteria 06/05/17 06/05/17 07:30 07:30 WBC 5.9 RBC 4.24 Hgb 12.5 Hct 37.0 MCV 87.1 MCH 29.5 MCHC 33.9 RDW 12.8 Plt Count 317 MPV 9.9 D Neutrophils % 61.6 Lymphocytes % 22.5 D Monocytes % 8.7 Eosinophils % 6.2 H Basophils % 1.0 Sodium 129 L Potassium 3.5 Chloride 97 L Carbon Dioxide 23 Anion Gap 9 BUN 15 D Creatinine 0.9 Random Glucose 89 D Calcium 8.9 Phosphorus 2.8 Magnesium 1.7 L Creatine Kinase Troponin I B-Natriuretic Peptide Triglycerides Cholesterol Total LDL Cholesterol HDL Cholesterol TSH Free T4 Urine Color Urine Appearance Urine pH Ur Specific [place] Urine Protein Urine Glucose (UA) Urine Ketones Urine Blood Urine Nitrite Urine Bilirubin Urine Urobilinogen Ur Leukocyte Esterase Urine RBC Urine WBC Ur Epithelial Cells Urine Bacteria HOSPITAL COURSE: * chest pain r/o ACS. 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 chart copies obtained from Dr Lee's office , last echo (02/01/16) normal systolic function, mild diastolic dysfunction, myocardial perfusion scan, no ischemia or infarction, lvef 69%, last echo () normal systolic function, mild diastolic dysfunction. echo 06/04/17, grade I diastolic dysfunction, moderate AR, patient was started on ASA 81mg daily. no events on telemetry monitoring. Dr Hill, cardiology was consulted. * patient has a past medical history of hypertension, b/p at goal, norvasc was continued * hyponatremia was noted upon admission serum sodium was 128, baseline 129, hctz was discontinued, case discussed with Dr Dong, nephrology, advised follow up in the office on 06/11/17. Date of Admission:06/04/17 Date of Discharge: 06/05/17 Minutes to complete discharge: 45 Discharge Summary Reason For Visit: CHEST PAIN Current Active Problems Chest pain (Acute) Costochondral chest pain (Acute) Diastolic dysfunction (Acute) Hypertension (Acute) Hyponatremia (Acute) Hypothyroidism (acquired) (Acute) Mild aortic stenosis by prior echocardiogram (Acute) Condition: Improved - Instructions Diet, Activity, Other Instructions: please continue HCTZ, due to your low sodium level. please follow up with Dr Abrams next 06/11/17 please follow up with your reliability technicians within 1 week if any new or persistent symptoms develop please return to the emergency department Referrals: Roselyn Victor MD [Staff Physician] - Disposition: HOME - Home Medications Comprehensive Discharge Medication List: Ambulatory Orders Amlodipine Besylate 5 mg PO HS 05/20/17 Hydrochlorothiazide [Hctz -] 25 mg PO HS 05/20/17 Levothyroxine [Synthroid -] 25 mcg PO DAILY 05/20/17 Lisinopril [Prinivil] 20 mg PO HS 05/20/17 Problem List - Problems (1) Hypertension Code(s): I10 - ESSENTIAL (PRIMARY) HYPERTENSION Qualifiers: Hypertension type: essential hypertension Qualified Code(s): I10 - Essential (primary) hypertension (2) Hypothyroidism (acquired) Code(s): E03.9 - HYPOTHYROIDISM, UNSPECIFIED (3) Chest pain Code(s): R07.9 - CHEST PAIN, UNSPECIFIED Qualifiers: Chest pain type: unspecified Qualified Code(s): R07.9 - Chest pain, unspecified This patient is new to me today: No Emergency Visit: Yes ED Registration Date: 06/04/17 Care time: The patient presented to the Emergency Department on the above date and was hospitalized for further evaluation of their emergent condition. Critical Care patient: No - Discharge Referral Referred to [facility] Med P.C.: No
[2017-06-05] MEDS ORDERED: MAGNESIUM SULF 50% (8.12 MEQ/2 ML-1 GM VIAL) IVPB ONE (10:15)
== END 2017-06-05 13:42 | disposition home or self-care (01) ==
LOC: FER 05:22 → FM/S 14:12
PROVIDERS: ADMIT Internal Medicine; ATTEND Nurse Practitioner Family
PROC: 3E033GC Introduction of Other Therapeutic Substance into Peripheral Vein, Percutaneous Approach (ICD-10-PCS; principal; 2017-06-04)
PROC: 3E0234Z Introduction of Serum, Toxoid and Vaccine into Muscle, Percutaneous Approach (ICD-10-PCS; 2017-06-04)
DX: M94.0 Chondrocostal junction syndrome [Tietze] (principal); R07.1 Chest pain on breathing; I10 Essential (primary) hypertension; E05.90 Thyrotoxicosis, unspecified without thyrotoxic crisis or storm; E87.1 Hypo-osmolality and hyponatremia; I35.0 Nonrheumatic aortic (valve) stenosis
CPT/HCPCS: 36415; 71010-TC; 80048; 80053; 80061; 81003; 81015; 82550; 83735; 83880; 84100; 84439; 84443; 84484; 85025; 85027; 87086; 87186; 90471; 90670; 93005; 93306-TC; 96374; 99285-25; G0378